=== PATIENT | female | born 1940 | race Caucasian/White ===

== ENCOUNTER 2022-03-02 14:38 | Outpatient (CLI) | payer MEDICARE, SELFPAY ==
--- NOTE | 2022-03-02 15:01 | CT_ITS ---
WS: [id number] LDCT LUNG CANCER SCREENING HISTORY: NICOTINE Dependence, cigarettes TECHNIQUE: Axial imaging performed from the apices to 1 cm below the costophrenic angles. Coronal and sagittal reformats are submitted with axial MIP series. All CT scans at [facility] use at least one of these dose optimization techniques: automated exposure control; mA and/or kV adjustment per patient size (includes targeted exams where dose is matched to clinical indication); or iterativ e reconstruction. DLP: 72.91 mGy.cm DIvol: Mean CTDIvol: 1.60 (mGy) COMPARISON: None available. Diagnostic quality: Satisfactory Lung Nodules: No suspicious noncalcified nodules. Multiple bilateral calcified granulomas which are b enign. No endobronchial lesion or groundglass lesion. 2 mm micronodule in the posterior RIGHT upper l obe. Lungs: Pulmonary hyperexpansion from emphysema. Heart: Normal size heart. Moderate coronary artery calcification. Other findings: No enlarged mediastinal or hilar lymph nodes. Pulmonary artery is equal to the aorta. No adrenal mass. Heavily calcified calcification throughout the splenic artery. Curvilinear calcific ation is distal splenic artery is probably a small, sub-[address]/CT lung screening 11443 IMPRESSION: LUNG-RADS: 2-Benign Appearance or Behavior FOLLOW UP: 12 Month: Continue annual screening with LDCT OTHER FINDINGS (S MODIFIER): Moderate coronary artery calcification. Evaluation by cardiology may be appropriate at this time.
== END 2022-03-02 14:39 | disposition home or self-care (01) ==
PROVIDERS: Visit Provider Family Medicine
DX: Z12.2 Encounter for screening for malignant neoplasm of respiratory organs (principal); F17.210 Nicotine dependence, cigarettes, uncomplicated
CPT/HCPCS: 71271

== ENCOUNTER → 2022-05-09 13:33 | Outpatient (BNVA) | payer MEDICARE, SELFPAY | PROVIDERS: Visit Provider Internal Medicine | DX: R94.31 Abnormal electrocardiogram [ECG] [EKG] (principal); R06.09 Other forms of dyspnea; I10 Essential (primary) hypertension; F17.200 Nicotine dependence, unspecified, uncomplicated; E78.5 Hyperlipidemia, unspecified; I45.10 Unspecified right bundle-branch block; I25.2 Old myocardial infarction | CPT/HCPCS: 93005; 99203; 99204 ==

== ENCOUNTER → 2024-12-18 11:07 | Outpatient (BNVA) | payer MEDICARE, SELFPAY | PROVIDERS: Referring Provider Family Medicine; Visit Provider Nurse Practitioner Family | DX: L98.1 Factitial dermatitis (principal); L81.4 Other melanin hyperpigmentation; L57.8 Other skin changes due to chronic exposure to nonionizing radiation; L82.1 Other seborrheic keratosis; D48.5 Neoplasm of uncertain behavior of skin; L57.0 Actinic keratosis | CPT/HCPCS: 11102; 17000; 99203 ==

== ENCOUNTER → 2025-04-24 14:05 | Outpatient (BNVA) | payer MEDICARE, SELFPAY | PROVIDERS: Visit Provider Nurse Practitioner Family | DX: Z86.007 Personal history of in-situ neoplasm of skin (principal); L57.0 Actinic keratosis | CPT/HCPCS: 17000; 99213 ==

== ENCOUNTER 2025-05-26 12:46 | Emergency (ER) | payer MEDICARE, MEDICAID, SELFPAY ==
[2025-05-26 12:49] VITALS: BP 178/84; PULSE 79; TEMP 36.8; O2SAT 99
--- NOTE | 2025-05-26 13:10 | W.ED.WOUNDLC ---
HPI - Wound/Laceration General: Chief Complaint: Wound/Laceration Stated Complaint: fell lac on R hand Time Seen by Provider: 05/26/25 12:48 Source: patient and family (daughter) Mode of arrival: wheelchair Limitations: no limitations History of Present Illness: Patient is an 84-year-old female presents to ED today along with her daughter for evaluation of a skin tear involving her right hand that she sustained just prior to arrival. Patient and daughter states that they have a screen door that has a small step up and states she was trying to open the screen door when her foot got caught on the lip of the step causing her to fall. She has reportedly tripped over this before. Patient states when she fell she struck the right hand against a portion of the wall sustaining a skin tear here. Daughter states she is not sure when her last tetanus was. Patient states she did not injure anything else during the fall. She denies striking her head or LOC. She does not complain of neck or back pain. Onset (ago): hour(s) Extremity Location: Right: hand Place: home Patient tetanus UTD: No Context: accidental Associated symptoms: Reports no associated symptoms Treatments prior to arrival: bandage Related Data Home Medications ?Medication ?Instructions ?Recorded ?Confirmed albuterol sulfate 90 mcg/actuation 1 puff inhalation DIRECTED 09/06/21 05/09/22 aerosol inhaler (Ventolin HFA) aspirin 325 mg tablet 325 mg PO DAILY 09/06/21 05/09/22 benzonatate 100 mg capsule 100 mg PO BID PRN 09/06/21 05/09/22 fluticasone 250 mcg-salmeterol 50 1 inh inhalation BID 09/06/21 05/09/22 mcg/dose blistr powdr for inhalation (Advair Diskus) fluticasone propionate 50 1 spray intranasal DAILY 09/06/21 05/09/22 mcg/actuation nasal spray,suspension hydrochlorothiazide 25 mg tablet 25 mg PO DAILY 09/06/21 05/09/22 ibuprofen 800 mg tablet 800 mg PO TID PRN 09/06/21 05/09/22 levothyroxine 100 mcg capsule 100 mcg PO DAILY 09/06/21 05/09/22 lisinopril 10 mg tablet 10 mg PO DAILY 09/06/21 05/09/22 metformin 500 mg tablet,extended 500 mg PO BID 09/06/21 05/09/22 release 24 hr nitroglycerin 0.4 mg sublingual 0.4 mg sublingual Q5M PRN 09/06/21 05/09/22 tablet pravastatin 20 mg tablet 20 mg PO DAILY 09/06/21 05/09/22 sitagliptin phosphate 100 mg 100 mg PO DAILY 09/06/21 05/09/22 tablet (Januvia) tiotropium bromide 18 mcg capsule 1 cap inhalation BID 09/06/21 05/09/22 with inhalation device (Spiriva with HandiHaler) Allergies Allergy/AdvReac Type Severity Reaction Status Date / Time No Known Allergies Allergy Verified 05/26/25 12:56 Review of Systems Musc: Reports: extremity pain (R hand-skin tear; no bony pain); Denies: extremity swelling, joint pain or joint swelling Skin/Breast: Reports: other (skin tear R hand) Neuro: Denies: numbness in extremities or sensory changes PFSH ED PFSH: Medical History HTN (hypertension) Hyperlipidemia Family History Mother Heart disease Hypercholesteremia Hypertension Father Heart disease Social History Smoking and tobacco/nicotine status: current every day tobacco/nicotine user Physical Exam Const: COMMON NORMALS: no acute distress, average body habitus, no limitations, healthy appearing, alert and well nourished GENERAL APPEARANCE: cooperative HENMT: COMMON NORMALS: normocephalic and atraumatic HEAD & SCALP: normal to inspection, normocephalic and atraumatic Neck/C-Spine: COMMON NORMALS: full ROM CERVICAL SPINE: No Cervical spine tenderness Resp: COMMON NORMALS: normal respiratory effort and clear to auscultation bilaterally AUSCULTATION: clear to auscultation bilaterally Back/Pelvis: COMMON NORMALS: no thoracic nor lumbar tenderness Extremity: COMMON NORMALS: full ROM and capillary refill normal GENERAL: Yes normal exam except as noted RIGHT UPPER EXTREMITY: Yes hand & digits (skin tear with tissue loss to R radial hand; no bleeding) Right hand and digits: Yes palpation (no bony tenderness to the hand), Yes ROM exam (normal) and Yes neurovascular exam (normal) Neuro: COMMON NORMALS: moves all extremities, no focal motor deficits and no sensory deficits noted SENSORIUM/ORIENTATION: Yes alert Skin: NARRATIVE SKIN EXAM: see above-skin tear R hand Course Vital Signs: Vital signs: Vital Signs Temperature 98.2 F 05/26/25 12:49 Pulse Rate 79 05/26/25 12:49 Blood Pressure 178/84 05/26/25 12:49 Pulse Oximetry 99 05/26/25 12:49 Oxygen Delivery Me thod Room Air 05/26/25 12:49 MDM - Wound/Laceration Medical Decision Making Patient here for a skin tear involving her right hand. She does appear to have some tissue loss as the tear flap is irregular and does not entirely cover exposed area. Wound was copiously cleansed and dressed and flap reapproximated. Do not feel this would hold any type of stitch as the skin is extremely frail. Tetanus has been updated today. Differential Diagnosis Likely avulsion of skin Medical Records I reviewed the patient's medical records. No radiology studies performed this visit Discharge Plan Discharge Patient Disposition: Home Clinical Impression: Skin tear of right hand without complication Qualifiers: Encounter type: initial encounter Qualified Code(s): S61.411A - Laceration without foreign body of right hand, initial encounter Condition: Stable Prescriptions: No Action pravastatin 20 mg tablet 20 mg PO DAILY benzonatate 100 mg capsule 100 mg PO BID PRN Rx Instructions: Take 1-2 caps by mouth every eight hours as needed for cough ibuprofen 800 mg tablet 800 mg PO TID PRN fluticasone propion-salmeterol [Advair Diskus] 250-50 mcg/dose blister with device 1 inh inhalation BID lisinopril 10 mg tablet 10 mg PO DAILY Januvia 100 mg tablet 100 mg PO DAILY hydrochlorothiazide 25 mg tablet 25 mg PO DAILY levothyroxine 100 mcg capsule 100 mcg PO DAILY metformin 500 mg tablet extended release 24 hr 500 mg PO BID Spiriva with HandiHaler 18 mcg capsule, w/inhalation device 1 cap inhalation BID Rx Instructions: puncture 1 cap using device; one dose = 2 inhalations albuterol sulfate [Ventolin HFA] 90 mcg/actuation HFA aerosol inhaler 1 puff inhalation DIRECTED Rx Instructions: inhale 1-2 puffs by mouth four times a day as needed fluticasone propionate 50 mcg/actuation spray,suspension 1 spray intranasal DAILY Rx Instructions: administer into each nostril nitroglycerin 0.4 mg tablet, sublingual 0.4 mg sublingual Q5M PRN Rx Instructions: do not exceed 3 doses per episode aspirin 325 mg tablet 325 mg PO DAILY Discharge Orders: Discharge ED (Routine); Ordered 05/26/25 Ordered By: Shelley Hanson Patient Instructions: Skin Tear (ED), Patient Portal & Quentin Instructions Activity Restrictions/Additional Instructions: As we discussed, you may cleanse tear with gentle soap and lukewarm water daily. Use a nonstick adhesive dressing. She may follow-up with primary care in a week or two to monitor for healing. Her tetanus was updated today. Print Language: Barbadian Coding Level of Care Code ED [facility]
[2025-05-26] MEDS: tetanus-dipt-pertussis 0.5 mL SDV IM (13:46)
[2025-05-26 13:53] VITALS: BP 178/85; PULSE 69; O2SAT 95
[2025-05-26 13:55] VITALS: BP 178/85; PULSE 69; O2SAT 95
== END 2025-05-26 13:57 | disposition home or self-care (01) ==
PROVIDERS: Emergency Provider Physician Assistant
DX: S61.411A Laceration without foreign body of right hand, initial encounter (principal); Z79.84 Long term (current) use of oral hypoglycemic drugs; Z79.82 Long term (current) use of aspirin; Z72.0 Tobacco use; E78.5 Hyperlipidemia, unspecified; I10 Essential (primary) hypertension; W01.198A Fall on same level from slipping, tripping and stumbling with subsequent striking against other object, initial encounter
CPT/HCPCS: 90471; 90715; 99283

== ENCOUNTER 2025-06-18 14:28 | Outpatient (CLI) | payer MEDICARE, MEDICAID, SELFPAY ==
--- NOTE | 2025-06-18 14:33 | XR_ITS ---
WS: [id number] Exam: XR foot RT min 3V* [id number] Date/Time of Exam: 06/18/2025 2:35 PM Reason For Exam: R FOOT PAIN No acute fracture. Degenerative changes in the IP joints and midfoot joints. 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 Calcaneal spurs. Mild soft tissue swelling about the forefoot. XR/XR foot RT min 3V* [id number] IMPRESSION: 1. Moderate degenerative changes. Soft tissue swelling. 2. No fracture.
== END 2025-06-18 14:29 | disposition home or self-care (01) ==
LOC: RAD 14:29
PROVIDERS: PCP Family Medicine; Visit Provider Family Medicine
DX: M79.671 Pain in right foot (principal); M19.071 Primary osteoarthritis, right ankle and foot; M21.611 Bunion of right foot; M77.31 Calcaneal spur, right foot; R22.41 Localized swelling, mass and lump, right lower limb
CPT/HCPCS: 73630

== ENCOUNTER → 2025-08-04 13:34 | Outpatient (BNVA) | payer MEDICARE, MEDICAID, SELFPAY | PROVIDERS: PCP Family Medicine; Visit Provider Nurse Practitioner Family | DX: Z86.007 Personal history of in-situ neoplasm of skin (principal); D48.5 Neoplasm of uncertain behavior of skin; L57.0 Actinic keratosis | CPT/HCPCS: 11102; 17000; 99213 ==